=== PATIENT | male | born 1955 | race African-American/Black ===

== ENCOUNTER 2017-04-14 15:37 | Observation (INO) | payer BC, OTHER ==
[2017-04-14] MEDS ORDERED: Nitroglycerin 2% Oint 1 GM UD Packet TOP ONE (15:51)
--- NOTE | 2017-04-14 15:52 | EDM.PDOC ---
ED HPI GENERAL MEDICAL PROBLEM - General Chief Complaint: Chest Pain Stated Complaint: CHEST PAINS Time Seen by Provider: 04/14/17 15:41 - History of Present Illness INITIAL COMMENTS - FREE TEXT/NARRATIVE: HISTORY AND PHYSICAL: History of present illness: Patient is a 62-year-old black male presents with chest pain he's had off and on for 3 days it history hypertension he denies associated shortness of breath palpitations nausea vomiting or diaphoresis this is midsternal and vaguely described he denies history of prior SC or CVA Review of systems: As per history of present illness and below otherwise all systems reviewed and negative. Past medical history: As per history of present illness and as reviewed below otherwise noncontributory. Surgical history: As per history of present illness and as reviewed below otherwise noncontributory. Social history: No reported history of drug or alcohol abuse. Family history: As per history of present illness and as reviewed below otherwise noncontributory. Physical exam: HEENT: Atraumatic, normocephalic, pupils reactive, negative for conjunctival pallor or scleral icterus, mucous membranes moist, throat clear, neck supple, nontender, trachea midline. Lungs: Clear to auscultation, breath sounds equal bilaterally, chest nontender. Heart: S1S2, regular, negative for clicks, rubs, or JVD. Abdomen: Soft, nondistended, nontender. Negative for masses or hepatosplenomegaly. Negative for costovertebral tenderness. Pelvis: Stable nontender. Genitourinary: Deferred. Rectal: Deferred. Extremities: Atraumatic, negative for cords or calf pain. Neurovascular unremarkable. Neuro: Awake, alert, oriented. Cranial nerves II through XII unremarkable. Cerebellum unremarkable. Motor and sensory unremarkable throughout. Exam nonfocal. Diagnostics: CBC CMP PT/INR troponin chest x-ray EKG Therapeutics: IV O2 monitor aspirin nitro paste 1 inch Impression: #1 chest pain #2 hypertension Definitive disposition and diagnosis as appropriate pending reevaluation and review of above. Chest Pain Score (Numeric/FACES): 6 - Related Data Allergies Allergy/AdvReac Type Severity Reaction Status Date / Time No Known Allergies Allergy Verified 04/14/17 15:43 Home Meds: Home Meds Lisinopril [Lisinopril] 04/14/17 [History] Metoprolol Succinate/HCTZ [Metoprolol ER-Hctz 50-12.5 mg] 1 each PO 04/14/17 [ History] Past Medical History - Past Health History Medical/Surgical History: Denies Medical/Surgical History Cardiovascular History: Reports: Hypertension Social & Family History - Tobacco Use Smoking Status *Q: Never Smoker Second Hand Smoke Exposure: No - Recreational Drug Use Recreational Drug Use: No ED ROS GENERAL - Review of Systems Review Of Systems: ROS reveals no pertinent complaints other than HPI. ED EXAM, GENERAL - Physical Exam Exam: See Below (See dictated) Course - Vital Signs Last Recorded V/S: Last Vital Signs Temp 36.3 C 04/14/17 15:49 Pulse 68 04/14/17 16:26 Resp 16 04/14/17 16:26 BP 160/111 H 04/14/17 16:26 Pulse Ox 98 04/14/17 16:26 - Orders/Labs/Meds Orders: Active Orders 24 hr Category Date Time Status Cardiac Monitoring [RC] . DIRECTED Care 04/14/17 15:53 Active EKG 12 Lead [EKG Documentation Completion] [RC] STAT Care 04/14/17 16:45 Active EKG Documentation Completion [RC] STAT Care 04/14/17 15:51 Active Oxygen Therapy [RC] ASDIRECTED Care 04/14/17 15:53 Active Chest 1V Frontal [CR] Stat Exams 04/14/17 15:51 Taken Labs: Laboratory Tests 04/14/17 04/14/17 04/14/17 Range/Units 15:45 15:45 15:45 WBC 5.86 (4.0-11.0) K/uL RBC 4.93 (4.50-5.90) M/uL Hgb 13.5 (13.0-17.0) g/dL Hct 41.5 (38.0-50.0) % MCV 84.2 (80.0-98.0) fL MCH 27.4 (27.0-32.0) pg MCHC 32.5 (31.0-37.0) g/dL RDW Std Deviation 41.6 (28.0-62.0) fl RDW Coeff of Nichole 14 (11.0-15.0) % Plt Count 156 (150-400) K/uL MPV 11.80 (7.40-12.00) fL Neut % (Auto) 36.0 L (48.0-80.0) % Lymph % (Auto) 45.4 H (16.0-40.0) % Wood % (Auto) 5.3 (0.0-15.0) % Eos % (Auto) 12.8 H (0.0-7.0) % Baso % (Auto) 0.5 (0.0-1.5) % Neut # (Auto) 2.1 (1.4-5.7) K/uL Lymph # (Auto) 2.7 H (0.6-2.4) K/uL Wood # (Auto) 0.3 (0.0-0.8) K/uL Eos # (Auto) 0.8 H (0.0-0.7) K/uL Baso # (Auto) 0.0 (0.0-0.1) K/uL Nucleated RBC % 0.0 /100WBC Nucleated RBCs # 0 K/uL Sodium 141 (136-146) mmol/L Potassium 3.9 (3.5-5.1) mmol/L Chloride 106 (98-110) mmol/L Carbon Dioxide 25 (21-31) mmol/L BUN 21 (6.0-23.0) mg/dL Creatinine 1.3 (0.6-1.5) mg/dL Est Cr Clr Drug Dosing 56.50 mL/min Estimated GFR (MDRD) > 60.0 ml/min Glucose 95 (60-110) mg/dL Calcium 9.5 (8.8-10.8) mg/dL Total Bilirubin 1.5 (0.1-1.5) mg/dL AST 24 (5-40) IU/L ALT 22 (8-54) IU/L Alkaline Phosphatase 50 (40-150) Troponin I < 0.10 (0.0-0.29) NG/ML Total Protein 7.4 (6.0-8.0) g/dL Albumin 4.5 (3.4-4.8) g/dL Globulin 2.9 (2.0-3.5) g/dL Albumin/Globulin Ratio 1.6 (1.3-2.8) Meds: Medications Discontinued Medications Generic Name Dose Route Start Last Admin Trade Name Freq PRN Reason Stop Dose Admin Aspirin 324 mg 04/14/17 15:51 04/14/17 15:59 Aspirin PO 04/14/17 15:52 324 mg ONETIME ONE Administration Aspirin Confirm 04/14/17 16:01 Aspirin Administered 04/14/17 16:02 Dose 81 mg .ROUTE .STK-MED ONE Morphine Sulfate 2 mg 04/14/17 16:41 Morphine IVPUSH 04/14/17 16:42 ONETIME ONE Nitroglycerin 1 gm 04/14/17 15:51 04/14/17 15:59 Nitro-Bid 2% TOP 04/14/17 15:52 1 gm ONETIME ONE Administration Departure - Departure Time of Disposition: 16:58 Disposition: Refer to Observation Condition: good Clinical Impression: Chest pain - Discharge Information Forms: ED Department Discharge - My Orders Last 24 Hours: My Active Orders 04/14/17 15:51 EKG Documentation Completion [RC] STAT Chest 1V Frontal [CR] Stat 04/14/17 15:53 Cardiac Monitoring [RC] . DIRECTED Oxygen Therapy [RC] ASDIRECTED 04/14/17 16:45 EKG 12 Lead [EKG Documentation Completion] [RC] STAT - Assessment/Plan Last 24 Hours: My Active Orders 04/14/17 15:51 EKG Documentation Completion [RC] STAT Chest 1V Frontal [CR] Stat 04/14/17 15:53 Cardiac Monitoring [RC] . DIRECTED Oxygen Therapy [RC] ASDIRECTED 04/14/17 16:45 EKG 12 Lead [EKG Documentation Completion] [RC] STAT
[2017-04-14] MEDS: Aspirin 81 MG Tab.Chew PO ONE ×2 (15:59→18:41)
[2017-04-14] MEDS ORDERED: Aspirin 81 MG Tab.Chew ONE (16:01)
[2017-04-14 16:39] LABS: CHLORIDE,CL 106 mmol/L (98-110); SODIUM,NA 141 mmol/L (136-146)
[2017-04-14] MEDS ORDERED: Morphine 2 MG/ML Syringe IVPUSH ONE (16:41)
[2017-04-14] MEDS ORDERED: Hydrochlorothiazide 25 MG Tab PO ONE (19:10)
--- NOTE | 2017-04-14 19:23 | PCM.HP ---
[id number] yo male with pmh of hypertension who presents with three day history of chest pain. The pain is substernal, intermittent and associated with shortness of breath. Patient reports that he stop taking his antihypertension medication a year ago when his prescription ran out. He was seen in the ED and noted to have 194/114 and HR of 75. Initial EKG and troponin were negative. He was given Nitro paste with resolution of chest pain. Chest Pain Score (Numeric/FACES): 6 - Related Data Allergies/Adverse Reactions: Allergies Allergy/AdvReac Type Severity Reaction Status Date / Time No Known Allergies Allergy Verified 04/14/17 15:43 Home Medications: Home Meds Hydrochlorothiazide 25 mg PO DAILY #30 tablet 04/15/17 [Rx] Lisinopril 10 mg PO DAILY #30 tablet 04/15/17 [Rx] Past Medical History - Past Health History Medical/Surgical History: Denies Medical/Surgical History Cardiovascular History: Reports: Hypertension Social & Family History - Tobacco Use Smoking Status *Q: Never Smoker Second Hand Smoke Exposure: No - Caffeine Use Caffeine Use: Reports: None - Recreational Drug Use Recreational Drug Use: No H&P Review of Systems - Review of Systems: Review Of Systems: See Below General: Reports: No Symptoms HEENT: Reports: No Symptoms Pulmonary: Reports: No Symptoms Cardiovascular: Reports: Chest Pain Gastrointestinal: Reports: No Symptoms Genitourinary: Reports: No Symptoms Musculoskeletal: Reports: No Symptoms Skin: Reports: No Symptoms Psychiatric: Reports: No Symptoms Neurological: Reports: No Symptoms Hematologic/Lymphatic: Reports: No Symptoms Immunologic: Reports: No Symptoms Exam - Exam Exam: See Below - Vital Signs Vital Signs: Last Vital Signs Temp 36.6 C 04/14/17 18:34 Pulse 66 04/14/17 18:34 Resp 16 04/14/17 18:34 BP 166/104 H 04/14/17 18:34 Pulse Ox 97 04/14/17 18:34 Weight: 78.471 kg - Exam General: Alert, Oriented Lungs: Clear to Auscultation, Normal Respiratory Effort Cardiovascular: Regular Rate, Regular Rhythm. No: Tachycardia, Systolic Murmur , Diastolic Murmur Abdomen: Normal Bowel Sounds, Soft Extremities: Normal Inspection Skin: Warm, Dry, Intact Neurological: No: Focal Deficit - Patient Data Result Diagrams: 04/14/17 15:45 04/14/17 15:45 *Q Meaningful Use (ADM) - VTE *Q VTE Criteria *Q: - Stroke *Q Stroke Criteria *Q: - AMI *Q AMI Criteria *Q: Problem List Initiated/Reviewed/Updated: Yes Orders Last 24hrs: Active Orders 24 hr Category Date Time Status Antiembolic Devices [RC] PER UNIT ROUTINE Care 04/14/17 19:16 Ordered Oxygen Therapy [RC] PRN Care 04/14/17 19:16 Ordered Telemetry Monitoring [Cardiac Monitoring] [RC] Q8H Care 04/14/17 17:23 Active VTE/DVT Education [RC] PER UNIT ROUTINE Care 04/14/17 19:16 Ordered Vital Signs [RC] Q4H Care 04/14/17 19:16 Ordered TROPONIN I [CHEM] Q6H Lab 04/14/17 22:00 Ordered TROPONIN I [CHEM] Q6H Lab 04/15/17 04:00 Ordered Acetaminophen [Tylenol] Med 04/14/17 19:15 Ordered 650 mg PO Q4H PRN Hydrochlorothiazide Med 04/14/17 19:10 Once 25 mg PO ONETIME ONE Sequential Compression Device [OM.PC] Per Unit Routine Oth 04/14/17 19:16 Ordered Medication Orders Acetaminophen (Tylenol) 650 mg PO Q4H PRN PRN Reason: Pain Hydrochlorothiazide (Hydrochlorothiazide) 25 mg PO ONETIME ONE Stop: 04/14/17 19:11 Assessment/Plan Comment:: 62 yo male who presented with chest pain. We will monitor overnight on telemetry and trend cardiac enzymes. I have started HCTZ 25mg for treatment of his hypertension.
[2017-04-14] MEDS: Acetaminophen 325 MG Tab PO PRN ×2 (19:38→23:49)
[2017-04-15 08:31] VITALS: BP 168/107
--- NOTE | 2017-04-15 11:41 | PCM.DCSUM1 ---
<Josee,Deepak - Last Filed: 04/15/17 11:36> Discharge Summary - Hospital Course Free Text/Narrative:: Patient admitted 04/14/17 for chest pain and hypertension. This was likely due to no-adherence to medications. He was started on HCTZ 25 mg. Troponin was negative. BP improved. He will be discharged on HCTZ and Lisinopril. He will be scheduled for stress test. he will follow-up with Dr. Tripp. - Discharge Data Discharge Date: 04/15/17 Discharge Disposition: Home, Self-Care 01 Condition: Good - Patient Summary/Data Recommended Follow-up Testing/Procedures: stress test - Patient Instructions Diet: Usual Diet as Tolerated Activity: As Tolerated, Rest and Relax Today Notify Provider of: Fever, Increased Pain, Swelling and Redness, Nausea and/or Vomiting - Discharge Plan Prescriptions/Med Rec: Hydrochlorothiazide 25 mg PO DAILY #30 tablet Lisinopril 10 mg PO DAILY #30 tablet Home Medications: Home Meds Hydrochlorothiazide 25 mg PO DAILY #30 tablet 04/15/17 [Rx] Lisinopril 10 mg PO DAILY #30 tablet 04/15/17 [Rx] Patient Handouts: Nonspecific Chest Pain, [id number], Lisinopril tablets, Hydrochlorothiazide, HCTZ capsules or tablets Referrals: [facility] [Outside] - Discharge Summary/Plan Comment DC Time >30 min.: No - Patient Data Vitals - Most Recent: Last Vital Signs Temp 37.1 C 04/15/17 08:00 Pulse 59 L 04/15/17 08:00 Resp 20 04/15/17 08:00 BP 168/107 H 04/15/17 08:00 Pulse Ox 64 L 04/15/17 08:00 Weight - Most Recent: 78.471 kg I&O - Last 24 hours: Intake & Output 04/14/17 04/15/17 04/15/17 22:59 06:59 14:59 Intake Total 400 Balance 400 Lab Results - Last 24 hrs: Laboratory Results - last 24 hr 04/14/17 04/15/17 Range/Units 21:54 03:58 Troponin I < 0.10 < 0.10 (0.0-0.29) NG/ML Med Orders - Current: Current Medications Acetaminophen (Tylenol) 650 mg PO Q4H PRN PRN Reason: Pain Last Admin: 04/14/17 23:49 Dose: 650 mg Discontinued Medications Aspirin (Aspirin) 324 mg PO ONETIME ONE Stop: 04/14/17 15:52 Last Admin: 04/14/17 18:41 Dose: Not Given Aspirin (Aspirin) Confirm Administered Dose 81 mg .ROUTE .STK-MED ONE Stop: 04/14/17 16:02 Last Admin: 04/14/17 18:41 Dose: Not Given Hydrochlorothiazide (Hydrochlorothiazide) 25 mg PO ONETIME ONE Stop: 04/14/17 19:11 Last Admin: 04/14/17 19:39 Dose: 25 mg Morphine Sulfate (Morphine) 2 mg IVPUSH ONETIME ONE Stop: 04/14/17 16:42 Last Admin: 04/14/17 18:41 Dose: Not Given Nitroglycerin (Nitro-Bid 2%) 1 gm TOP ONETIME ONE Stop: 04/14/17 15:52 Last Admin: 04/14/17 15:59 Dose: 1 gm *Q Meaningful Use (DIS) - VTE *Q VTE Criteria *Q: - Stroke *Q Stroke Criteria *Q: - AMI *Q AMI Criteria *Q: <Priyank Brannon - Last Filed: 04/15/17 20:56> - Patient Data Vitals - Most Recent: Last Vital Signs Temp 37.1 C 04/15/17 08:00 Pulse 59 L 04/15/17 08:00 Resp 20 04/15/17 08:00 BP 168/107 H 04/15/17 08:00 Pulse Ox 64 L 04/15/17 08:00 I&O - Last 24 hours: Intake & Output 04/15/17 04/15/17 04/15/17 06:59 14:59 22:59 Intake Total 400 600 Balance 400 600 Lab Results - Last 24 hrs: Laboratory Results - last 24 hr 04/14/17 04/15/17 Range/Units 21:54 03:58 Troponin I < 0.10 < 0.10 (0.0-0.29) NG/ML Med Orders - Current: Current Medications Discontinued Medications Acetaminophen (Tylenol) 650 mg PO Q4H PRN PRN Reason: Pain Last Admin: 04/14/17 23:49 Dose: 650 mg Aspirin (Aspirin) 324 mg PO ONETIME ONE Stop: 04/14/17 15:52 Last Admin: 04/14/17 18:41 Dose: Not Given Aspirin (Aspirin) Confirm Administered Dose 81 mg .ROUTE .STK-MED ONE Stop: 04/14/17 16:02 Last Admin: 04/14/17 18:41 Dose: Not Given Hydrochlorothiazide (Hydrochlorothiazide) 25 mg PO ONETIME ONE Stop: 04/14/17 19:11 Last Admin: 04/14/17 19:39 Dose: 25 mg Morphine Sulfate (Morphine) 2 mg IVPUSH ONETIME ONE Stop: 04/14/17 16:42 Last Admin: 04/14/17 18:41 Dose: Not Given Nitroglycerin (Nitro-Bid 2%) 1 gm TOP ONETIME ONE Stop: 04/14/17 15:52 Last Admin: 04/14/17 15:59 Dose: 1 gm *Q Meaningful Use (DIS) - VTE *Q VTE Criteria *Q: - Stroke *Q Stroke Criteria *Q: - AMI *Q AMI Criteria *Q: - Free Text/Narrative Note: I have examined patient. I have discussed findings with resident. I agree with the assessment and plan outlined in the following resident's note.
--- NOTE | 2017-04-15 13:04 | CR ---
EXAM DATE: 04/14/17 PATIENT'S AGE: 62 Patient: JAKE MUNIZ Facility: [place], [place] Site . Site : [id number] Study: XRay Chest [id number]/23/[id number] 4:35:22 PM Ordering Physician: Marcus Gorman Final Report: Indication: Chest pain Technique: Chest 1 view Comparison: 09/04/2013. Findings/Impression: Cardiovascular and mediastinum: Cardiomegaly with mildly decreased prominence of the right cardiac border, although this could be related to the portable technique. An ectatic, unfolded aorta again seen. Lungs and pleural space: Lungs are clear. No sign of infiltrate or mass. No sign of pleural effusion. No pneumothorax. Bones and soft tissues: No significant change. Dictated by Teddy Negrete MD @ 04/14/2017 4:37:58 PM Dictated by: Teddy Negrete MD @ 04/14/2017 16:38:05 (Electronic Signature) Report Signed by Proxy. CHAUNCEY
== END 2017-04-15 12:49 | disposition home or self-care (01) ==
LOC: MW.ED 15:37 → UNDOADMOB 17:30 → MW.MS 17:30 → OBSVTOIN 17:30 → INTOOBSV 17:30
PROVIDERS: ADMIT Internal Medicine; ATTEND Internal Medicine
DX: I49.3 Ventricular premature depolarization (principal); I10 Essential (primary) hypertension; R00.1 Bradycardia, unspecified; R06.02 Shortness of breath; I51.7 Cardiomegaly; R07.2 Precordial pain; Z79.899 Other long term (current) drug therapy; Z79.82 Long term (current) use of aspirin; Z79.891 Long term (current) use of opiate analgesic
CPT/HCPCS: 36415; 71010; 80053; 84484; 85025; 93005; 99285; A9270; G0378

== ENCOUNTER 2024-08-10 08:23 | Emergency (ER) | payer BC, OTHER ==
[2024-08-10 09:17] LABS: CORONAVIRUS COVID-19 NAA POSITIVE (NEGATIVE); INFLUENZA A NAA NEGATIVE (NEGATIVE); INFLUENZA B NAA NEGATIVE (NEGATIVE); RESPIRATORY SYNCYTIAL VIR NAA NEGATIVE (NEGATIVE)
[2024-08-10] MEDS: amLODIPine 5 MG Tab PO STA (10:46)
[2024-08-10 11:00] LABS: BASOPHILS ABSOLUTE AUTO 0.04 K/uL (0.00-0.20); EOSINOPHILS ABSOLUTE AUTO 0.17 K/uL (0.00-0.45); EOSINOPHILS PERCENT AUTO 4.3 % (0.0-6.0); HEMOGLOBIN 14.3 g/dL (14.0-18.0); IMMATURE GRAN ABSOLUTE AUTO 0.01 K/uL (0.00-0.05); IMMATURE GRAN PERCENT AUTO 0.3 % (0.0-0.4); LYMPHOCYTES ABSOLUTE AUTO 0.82 K/uL (1.00-4.80); LYMPHOCYTES PERCENT AUTO 20.9 % (24.0-44.0); MEAN CORPUSCULAR HEMOGLOBIN 26.9 pg (28.0-32.0); MEAN CORPUSCULAR HGB CONC 32.5 g/dL (32.0-36.0); MEAN CORPUSCULAR VOLUME 82.7 fL (83.0-99.0); MEAN PLATELET VOLUME 12.2 fL (9.4-12.4); MONOCYTES ABSOLUTE AUTO 0.62 K/uL (0.00-0.80); MONOCYTES PERCENT AUTO 15.8 % (0.0-8.0); NEUTROPHILS ABSOLUTE AUTO 2.26 K/uL (1.80-7.70); NEUTROPHILS PERCENT AUTO 57.7 % (41.0-71.0); PLATELET COUNT,PLT 126 K/uL (150-400); RED BLOOD CELL COUNT 5.32 M/uL (4.52-5.90); WHITE BLOOD CELL COUNT,WBC 3.92 K/uL (3.9-11.3)
[2024-08-10 11:09] LABS: APPEARANCE,URINE CLEAR; BILIRUBIN,URINE NEGATIVE (NEGATIVE); COLOR,URINE YELLOW; GLUCOSE,URINE NEGATIVE (NEGATIVE); KETONES,URINE NEGATIVE (NEGATIVE); LEUKOCYTE ESTERASE,URINE NEGATIVE (NEGATIVE); NITRITE,URINE NEGATIVE (NEGATIVE); OCCULT BLOOD,URINE NEGATIVE (NEGATIVE); PROTEIN,URINE TRACE mg/dL (NEGATIVE); UROBILINOGEN,URINE 0.2 EU/dL (<2.0)
[2024-08-10 11:15] LABS: BACTERIA,URINE RARE (NEGATIVE); EPITHELIAL CELLS,URINE RARE (NONE-FEW); RBC,URINE 0-1 (0-2/HPF); WBC,URINE 0-1 (0-5/HPF)
[2024-08-10 11:26] LABS: A/G RATIO 1.1 (0.9-1.6); BILIRUBIN TOTAL 2.2 mg/dL (0.2-1.0); CALCIUM 9.1 mg/dL (8.5-10.1); CARBON DIOXIDE,CO2 32.2 mmol/L (21.0-32.0); CREATININE 1.4 mg/dL (0.8-1.3); EST CRCL DRUG DOSING (CG) 47.87 mL/min; POTASSIUM,K 3.9 mmol/L (3.5-5.1); PROTEIN TOTAL,TP 7.6 g/dL (6.4-8.2)
[2024-08-10] MEDS: Ketorolac 10 MG Tab PO STA (11:29)
[2024-08-10] MEDS: Acetaminophen 500 MG Tab PO STA (11:29)
[2024-08-10 11:57] VITALS: BP 191/136; PULSE 92
[2024-08-10] MEDS: Nirmatrelvir/Ritonavir 150 MG/100 MG Dose Pack (Renal Dose) PO STA (11:57)
== END 2024-08-10 12:04 | disposition home or self-care (01) ==
LOC: MW.ED 08:23
DX: U07.1 COVID-19 (principal); I12.9 Hypertensive chronic kidney disease with stage 1 through stage 4 chronic kidney disease, or unspecified chronic kidney disease; N18.31 Chronic kidney disease, stage 3a; Z88.8 Allergy status to other drugs, medicaments and biological substances; Z75.8 Other problems related to medical facilities and other health care
CPT/HCPCS: 0241U; 36415; 71046; 80053; 81001; 84484; 85025; 93005; 99284; A9270; 93010; 99283

== ENCOUNTER 2025-02-27 07:11 | Emergency (ER) | payer SELFPAY ==
[2025-02-27] MEDS: Ketorolac 30 MG/ML SDV IM ONE (08:13)
[2025-02-27] MEDS: amLODIPine 5 MG Tab PO ONE (08:38)
[2025-02-27 09:49] VITALS: PULSE 68
[2025-02-27] MEDS: cloNIDine 0.1 MG Tab PO ONE (10:01)
[2025-02-27 11:17] VITALS: BP 173/109
== END 2025-02-27 11:35 | disposition home or self-care (01) ==
LOC: MW.ED 07:11
DX: M54.41 Lumbago with sciatica, right side (principal); I10 Essential (primary) hypertension; Z79.899 Other long term (current) drug therapy
CPT/HCPCS: 72100; 96372; 99283; A9270; J1885

== ENCOUNTER 2025-03-04 16:36 | Emergency (ER) | payer SELFPAY ==
[2025-03-04 16:48] LABS: BASOPHILS ABSOLUTE AUTO 0.08 K/uL (0.00-0.20); BASOPHILS PERCENT AUTO 1.1 % (0.0-1.0); EOSINOPHILS ABSOLUTE AUTO 0.39 K/uL (0.00-0.45); EOSINOPHILS PERCENT AUTO 5.2 % (0.0-6.0); HEMATOCRIT 45.1 % (42.0-52.0); HEMOGLOBIN 15.1 g/dL (14.0-18.0); IMMATURE GRAN ABSOLUTE AUTO 0.01 K/uL (0.00-0.05); IMMATURE GRAN PERCENT AUTO 0.1 % (0.0-0.4); LYMPHOCYTES ABSOLUTE AUTO 4.22 K/uL (1.00-4.80); LYMPHOCYTES PERCENT AUTO 55.7 % (24.0-44.0); MEAN CORPUSCULAR HEMOGLOBIN 27.4 pg (28.0-32.0); MEAN CORPUSCULAR HGB CONC 33.5 g/dL (32.0-36.0); MEAN CORPUSCULAR VOLUME 81.9 fL (83.0-99.0); MEAN PLATELET VOLUME 12.7 fL (9.4-12.4); MONOCYTES ABSOLUTE AUTO 0.65 K/uL (0.00-0.80); MONOCYTES PERCENT AUTO 8.6 % (0.0-8.0); NEUTROPHILS ABSOLUTE AUTO 2.22 K/uL (1.80-7.70); NEUTROPHILS PERCENT AUTO 29.3 % (41.0-71.0); PLATELET COUNT,PLT 165 K/uL (150-400); RED BLOOD CELL COUNT 5.51 M/uL (4.52-5.90); WHITE BLOOD CELL COUNT,WBC 7.57 K/uL (3.9-11.3)
[2025-03-04 16:52] VITALS: BP 243/156; PULSE 71
[2025-03-04] MEDS: Sodium Chloride 0.9% 1,000 ML IV ONE (17:00)
[2025-03-04] MEDS ORDERED: propofoL 1,000 MG/100 ML 100 ML IV SCH (17:00)
[2025-03-04] MEDS: niCARdipine/Normal Saline 20 MG in Premix Bag 1 BAG IV SCH (17:01)
[2025-03-04 17:04] LABS: INR 1.03 (0.86-1.11); PTT,PARTIAL THROMBOPLSTIN TIME 24.1 SEC (23.9-30.7)
[2025-03-04] MEDS: Ketamine 500 mg/10 ML MDV IV STA (17:04)
[2025-03-04] MEDS: Succinylcholine 200 MG/10 ML MDV IV STA (17:05)
[2025-03-04] MEDS: Ketamine 500 mg/10 ML MDV ONE (17:08)
[2025-03-04] MEDS ORDERED: Succinylcholine 200 MG/10 ML MDV ONE (17:08)
[2025-03-04 17:13] LABS: A/G RATIO 1.2 (0.9-1.6); ALANINE AMINOTRANSFERASE,ALT 30 IU/L (14-63); ALBUMIN 4.4 g/dL (3.4-5.0); ALKALINE PHOSPHATASE 60 U/L (46-116); ASPARTATE AMNIOTRANSFERASE,AST 25 IU/L (15-37); BILIRUBIN TOTAL 1.1 mg/dL (0.2-1.0); BLOOD UREA NITROGEN,BUN 29 mg/dL (7.0-18.0); CALCIUM 9.6 mg/dL (8.5-10.1); CHLORIDE,CL 105 mmol/L (98-107); CREATININE 1.5 mg/dL (0.8-1.3); EST CRCL DRUG DOSING (CG) 48.67 mL/min; ETHANOL BLOOD MEDICAL <3 mg/dL; GLUCOSE RANDOM 109 mg/dL (74-106); POTASSIUM,K 3.5 mmol/L (3.5-5.1); SODIUM,NA 143 mmol/L (136-148)
[2025-03-04 17:14] LABS: ESTIMATED GFR 50 mL/min (>60)
[2025-03-04] MEDS: propofoL 1,000 MG/100 ML 100 ML ONE (17:15)
[2025-03-04] MEDS: Ketamine 500 mg/10 ML MDV IM STA (17:34)
[2025-03-04] MEDS ORDERED: Norepinephrine Bit/D5W Premix 250 ML IV SCH (17:40)
[2025-03-04] MEDS: Norepinephrine Bit/D5W Premix 250 ML ONE (17:46)
== END 2025-03-04 18:21 ==
LOC: MW.ED 16:36
DX: S06.30AA Unspecified focal traumatic brain injury with loss of consciousness status unknown, initial encounter (principal); I10 Essential (primary) hypertension; Z79.899 Other long term (current) drug therapy; X58.XXXA Exposure to other specified factors, initial encounter
CPT/HCPCS: 31500; 36415; 51702; 70450; 71045; 80053; 80307; 82375; 85025; 85610; 85730; 93005; 96365; 96367; 99291; 99292; J0330; J2704; J3490; J7030; 93010; 99284